=== PATIENT | male | born 1990 | race African-American/Black ===

== ENCOUNTER 2018-11-13 19:40 | Emergency (ER) | payer OTHER ==
[~2018-11-13] VITALS: Ht 177.8 cm; Wt 59.0 kg
[2018-11-13 20:08] VITALS: BP 154/83
== END 2018-11-13 20:11 | disposition left against medical advice (07) ==
LOC: EDBD 19:40 → EEVIPCON 19:49 → ER 19:49
DX: E16.2 Hypoglycemia, unspecified (principal); Z53.21 Procedure and treatment not carried out due to patient leaving prior to being seen by health care provider

== ENCOUNTER 2018-12-06 15:47 | Inpatient (IN) | payer OTHER ==
[~2018-12-06] VITALS: Ht 172.7 cm; Wt 63.2 kg
[2018-12-06] MEDS ORDERED: SODIUM CHLORIDE 0.9% 1,000 ML IV ONE (17:02)
[2018-12-06 17:34] LABS: Basophils # (auto) 0 uL; Basophils % (auto) 0.7 % (0.0-2.0); Eosinophils # (auto) 0 uL; Eosinophils % (auto) 0.7 % (0.0-7.0); Hematocrit 46.9 % (41.0-53.0); Hemoglobin 15.7 g/dL (13.5-17.5); Lymphocytes # (auto) 1.3 uL; Lymphocytes % (auto) 23.5 % (10.0-50.0); Mean Corpuscular Hemoglobin 30.4 pg (28.0-32.0); Mean Corpuscular Hgb Conc. 33.5 g/dL (32.0-36.0); Mean Corpuscular Volume 90.7 fL (80.0-100.0); Monocytes # (auto) 0.4 uL; Monocytes % (auto) 6.3 % (0.0-12.0); Neutrophils # (auto) 3.9 uL; Neutrophils % (auto) 68.8 % (37.0-80.0); Nucleated Red Blood Cells % 0.1 %; Platelet Count (auto) 216 10^3/uL (140-450); Red Blood Cells 5.17 10^6/uL (4.5-5.90); Red Cell Distribution Width 14.5 % (11.8-14.3); White Blood Cell 5.7 10^3/uL (4.4-10.8)
[2018-12-06 17:46] LABS: INR 0.95 (0.9-1.15); Partial Thromboplastin Time 23.2 sec (23.64-32.05)
[2018-12-06 17:55] LABS: Alanine Aminotransferase 24 U/L (16-61); Albumin 4.4 g/dL (3.4-5.0); Anion Gap 7 (5-15); Aspartate Aminotransferase 30 U/L (15-37); BUN/Creatinine Ratio 18.9; Blood Urea Nitrogen 18 mg/dL (7-18); Calcium 9.2 mg/dL (8.5-10.1); Carbon Dioxide 27 mmol/L (21-32); Chloride 106 mmol/L (98-107); GFR African American 121 mL/min; GFR Non-African American 100 mL/min; Glucose 91 mg/dL (74-106); Potassium 4.4 mmol/L (3.5-5.1); Sodium 140 mmol/L (136-145)
[2018-12-06 17:59] LABS: Alkaline Phosphatase 80 U/L (45-117); Bilirubin, Total 1.2 mg/dL (0.2-1.0); Total Protein 8.6 g/dL (6.4-8.2)
[2018-12-06] MEDS ORDERED: MORPHINE SULF INJ 2 MG/ML SYRINGE 1ML IV PRN (18:45)
[2018-12-06] MEDS ORDERED: NITROGLYCERIN 0.4 MG SL TAB SL PRN (18:45)
[2018-12-06] MEDS ORDERED: LABETALOL HCL 5 MG/ML ML 20ML VIAL IV PRN (18:45)
[2018-12-06] MEDS ORDERED: D5W/SOD CHL 0.45% 1,000 ML IV ONE (18:45)
--- NOTE | 2018-12-06 20:12 | NUR ---
MS admit from ER KRISTIEROXY admitted to tele/MS after SBAR received. Patient oriented to LOUISE CARLISLE, RN primary RN, east unit, 244 room, 5 bed, and unit policies regarding patient care and visiting hours. Patient weighed by bedscale and encouraged to call if they need something. All questions and concerns addressed, patient verbalized understanding. Guards at bedside. Note:
[2018-12-06 20:15] VITALS: BP 146/88
[2018-12-06] MEDS ORDERED: INFLUENZA QUAD 2019-2020 0.5ml SYRG IM ONE (21:30)
[2018-12-06 22:00] VITALS: BP 146/88
[2018-12-07 05:00] VITALS: BP 124/76
[2018-12-07 06:55] LABS: Basophils # (auto) 0.1 uL; Basophils % (auto) 0.8 % (0.0-2.0); Eosinophils # (auto) 0.1 uL; Eosinophils % (auto) 1.5 % (0.0-7.0); Hematocrit 44.2 % (41.0-53.0); Hemoglobin 15.3 g/dL (13.5-17.5); Lymphocytes # (auto) 2.6 uL; Lymphocytes % (auto) 41.1 % (10.0-50.0); Mean Corpuscular Hemoglobin 30.7 pg (28.0-32.0); Mean Corpuscular Hgb Conc. 34.6 g/dL (32.0-36.0); Mean Corpuscular Volume 88.8 fL (80.0-100.0); Monocytes # (auto) 0.5 uL; Monocytes % (auto) 8.3 % (0.0-12.0); Neutrophils # (auto) 3.1 uL; Neutrophils % (auto) 48.3 % (37.0-80.0); Platelet Count (auto) 186 10^3/uL (140-450); Red Blood Cells 4.98 10^6/uL (4.5-5.90); Red Cell Distribution Width 14.5 % (11.8-14.3); White Blood Cell 6.3 10^3/uL (4.4-10.8)
--- NOTE | 2018-12-07 08:00 | NUR ---
ASSESSMENT NOTE PATIENT IS ALERT ORIENTED X4, RESTING IN BED COMFORTABLY, NO DISTRESS NOTED, ABLE TO VERBALIS HIS NEEDS, SELF REPOSITION, PAIN 0/10, PT HAS A METAL HAND CUFF AT BOTH FEET AND LEFT FOREARM, CHECKED FOR CIRCULATION AT ALL TIMES, GUARDS ALWAYS AT BED SIDE AT ALL TIMES.
[2018-12-07 09:00] VITALS: BP 136/80
--- NOTE | 2018-12-07 09:15 | NUR ---
DR MEADOWS GI CONSULT AT BED SIDE EXPLAINING EFD PROCEDURE TO PT, PT VERBALIS UNDERSTANDING
--- NOTE | 2018-12-07 10:08 | NUR ---
TRANSFER PATIENT BY HOSPITAL BED TO PRE OP ROXANNE CACERES AT BED SIDE AWARE
[2018-12-07] MEDS ORDERED: LABETALOL HCL 5 MG/ML 4ML SYRINGE IV PRN (10:30)
[2018-12-07] MEDS ORDERED: ePHEDrine SULFATE 50 MG/ML AMP IV PRN (10:30)
[2018-12-07] MEDS ORDERED: MORPHINE SULFATE 4 MG/ML SYR/VIAL IV PRN (10:30)
[2018-12-07] MEDS ORDERED: KETOROLAC TROMETH 30 MG/ML 1ML VIAL IV ONE (10:30)
[2018-12-07] MEDS ORDERED: ONDANSETRON HCL 4 MG/2 ML VIAL IV PRN (10:30)
[2018-12-07] MEDS ORDERED: HYDROmorphone HCL 2 MG/ML VL IV PRN (10:30)
[2018-12-07] MEDS ORDERED: fentaNYL CITRATE 100 MCG/2 ML VL ONE (10:34)
[2018-12-07] MEDS ORDERED: MEPERIDINE HCL (25 MG/ML) 1ML VIAL ONE (10:34)
[2018-12-07] MEDS ORDERED: MIDAZOLAM HCL 1MG/1ML-2 ML VIAL ONE (10:34)
--- NOTE | 2018-12-07 11:40 | NUR ---
PATIENT IS BACK TO HIS ROOM, NO DISTRESS NOTED, FULLY AWAKE
[2018-12-07] MEDS ORDERED: DexAMETHasone SOD PHOS 10MG/1ML VIAL INJ ONE (12:13)
[2018-12-07 13:08] VITALS: BP 129/92
--- NOTE | 2018-12-07 14:00 | NUR ---
TOLERTED LUNCH WELL, CONTINUE MONITORING
[2018-12-07] MEDS: PANTOPRAZOLE 40 MG TAB PO SCH ×2 (15:44→20:57)
[2018-12-07 17:00] VITALS: BP 159/70
--- NOTE | 2018-12-07 18:30 | NUR ---
PT CONTINUE STABLE, CONTINUE MONITORING
--- NOTE | 2018-12-07 19:20 | NUR ---
Opening Shift Note Assumed care of patient, awake and alert. No S/S of distress/SOB or pain. Instructed on POC and to call for assist PRN, will continue to monitor for changes Q1hr and PRN. Guards at bedside.
[2018-12-07 22:00] VITALS: BP 140/110
--- NOTE | 2018-12-08 01:30 | NUR ---
Carmen Cadena! I was sent to his after hours bottle capping machine operator. The bottle capping machine operator wrote down my concerns about the patient and told me he will send them to Dr. Ty.
--- NOTE | 2018-12-08 01:40 | NUR ---
Dr. Ty zohreh back! I inform about the patient's high blood pressures and his telemetry protocol, although being under medsurg admission. Dr. Jennings order Amilodipine 10mg PO once and Amilopine 10mg qdaily PO. Dr. Ty order to continue the labetalol. Lastly, Doctor Dick refused to upgrade patient to telemetry. Read verbal orders back to confirm and clarify. Will follow as order.
--- NOTE | 2018-12-08 01:55 | NUR ---
Patient is on Telemetry #14 now
[2018-12-08] MEDS ORDERED: amLODIPine BESYLATE 5 MG TAB PO ONE (02:15)
[2018-12-08 05:52] VITALS: BP 133/71
--- NOTE | 2018-12-08 07:30 | NUR ---
Opening Shift Note RECEIVED REPORT FROM NOC RN. Assumed care of patient, awake and alert. No S/S of distress/SOB or pain. BED IN LOWEST, LOCKED POSITION WITH SIDERAILS UP x2 AND CALL LIGHT WITHIN REACH. Instructed on POC and to call for assist PRN, will continue to monitor for changes Q1hr and PRN.
[2018-12-08 08:10] VITALS: BP 154/64
[2018-12-08] MEDS ORDERED: AML5T PO (08:22)
[2018-12-08] MEDS ORDERED: PANT40T PO (08:22)
[2018-12-08 09:00] VITALS: BP 146/92
[2018-12-08] MEDS ORDERED: amLODIPine BESYLATE 5 MG TAB PO SCH ×2 (10:00)
[2018-12-08] MEDS ORDERED: PANTOPRAZOLE 40 MG TAB PO SCH (10:00)
[2018-12-08] MEDS: PANTOPRAZOLE 40 MG TAB PO SCH (10:25)
[2018-12-08 12:10] VITALS: BP 154/64
--- NOTE | 2018-12-08 12:42 | NUR ---
Discharge instructions given as ordered. Encourage to follow up with PMD as instructed. All questions and concerns addressed. Patient verbalized understanding. Medication reconciliation form completed and copy given to patient. IV removed with catheter intact, pressure dressing applied. Telemetry unit returned to ICU. Patient taken to [facility] vehicle with all personal belongings, accompanied by GUARDS. No distress noted at time of departure.
== END 2018-12-08 12:42 | DRG 395 ==
LOC: EEVIPCON 15:47 → ER 15:47 → EAST 15:48 → TELE-E-ADS 12-08 07:40
PROVIDERS: ADMIT Nurse Practitioner Acute Care; ATTEND Internal Medicine
PROC: 0DC68ZZ Extirpation of Matter from Stomach, Via Natural or Artificial Opening Endoscopic (ICD-10-PCS; principal; 2018-12-07 10:36)
DX: T18.2XXA Foreign body in stomach, initial encounter (principal); I10 Essential (primary) hypertension; K29.70 Gastritis, unspecified, without bleeding; K29.80 Duodenitis without bleeding; F32.9 Major depressive disorder, single episode, unspecified; F41.9 Anxiety disorder, unspecified; X79.XXXA Intentional self-harm by blunt object, initial encounter; Z82.49 Family history of ischemic heart disease and other diseases of the circulatory system; Y93.89 Activity, other specified; Y92.89 Other specified places as the place of occurrence of the external cause; Y99.8 Other external cause status
CPT/HCPCS: 36415; 43247; 71045; 71250; 74176; 80053; 84484; 85025; 85610; 85730; 86850; 86900; 86901; 87081; 93005; 96360; 96361; G0378; J1100; J2250